=== PATIENT | male | born 1995 | race Caucasian/White ===

== ENCOUNTER 2019-02-18 18:19 | Emergency (ER) | payer OTHER ==
[~2019-02-18] VITALS: Ht 180.3 cm; Wt 94.1 kg
[2019-02-18] MEDS ORDERED: ACET1TAB55 PO (18:25)
--- NOTE | 2019-02-18 20:01 | REP ---
HISTORY: Pain after trauma. COMPARISON: None. FINDINGS: No acute fracture or destructive osseous lesion. The mortise is intact. There is mild soft tissue swelling. There are retro and plantar calcaneal heel spurs. Electronically Signed by Ino Mayorga DO 02/19/2019 12:20 P
[2019-02-18 20:42] VITALS: BP 154/91
== END 2019-02-18 21:20 | disposition home or self-care (01) ==
LOC: M ED 18:19
DX: S93.402A Sprain of unspecified ligament of left ankle, initial encounter (principal); X50.1XXA Overexertion from prolonged static or awkward postures, initial encounter; Y92.139 Unspecified place military base as the place of occurrence of the external cause; Y93.02 Activity, running; Y99.1 Military activity; M77.32 Calcaneal spur, left foot; Z77.098 Contact with and (suspected) exposure to other hazardous, chiefly nonmedicinal, chemicals

== ENCOUNTER 2019-05-20 15:44 | Observation (INO) | payer OTHER ==
[~2019-05-20] VITALS: Ht 185.4 cm; Wt 97.7 kg
[~2019-05-20 15:44] MED LIST: ACET1TAB55 PO
[2019-05-20] MEDS ORDERED: ASPI-1 PO (15:53)
[2019-05-20] MEDS ORDERED: OXYC1TAB23 PO (15:53)
[2019-05-20] MEDS ORDERED: IBUP80TA PO (15:53)
[2019-05-20] MEDS ORDERED: ECOT81TA5 PO (15:53)
[2019-05-20 17:01] LABS: BASO # 0.1 10^3/uL (0.0-0.2); BASO % 0.8 % (0.0-1.0); EOS # 0.5 10^3/uL (0.0-0.5); EOS % 5.2 % (0.0-3.0); HEMATOCRIT 45.9 % (42.0-52.0); HEMOGLOBIN 15.5 g/dl (13.5-17.5); LYMPH # 1.8 10^3/uL (1.5-5.0); LYMPH % 17.3 % (24.0-44.0); MEAN CORPUSCULAR HEMOGLOBIN 28.8 pg (27.0-33.0); MEAN CORPUSCULAR HGB CONC 33.8 g/dl (32.0-36.5); MEAN CORPUSCULAR VOLUME 85.2 fl (80.0-96.0); MONO # 0.8 10^3/uL (0.0-0.8); MONO % 7.4 % (0.0-5.0); NEUTROPHILS # 7.2 10^3/uL (1.5-8.5); NEUTROPHILS % 68.8 % (36.0-66.0); PLATELET COUNT, AUTOMATED 176 10^3/uL (150-450); RED BLOOD COUNT 5.39 10^6/uL (4.30-6.10); WHITE BLOOD COUNT 10.4 10^3/uL (4.0-10.0)
[2019-05-20 17:21] LABS: INR 1.06; PROTHROMBIN TIME 13.5 SECONDS (11.8-14.0)
[2019-05-20 17:22] LABS: PARTIAL THROMBOPLASTIN TIME 29.2 SECONDS (25.0-38.4)
[2019-05-20 17:24] LABS: BLOOD UREA NITROGEN 16 MG/DL (7-18); CALCIUM LEVEL 9.3 MG/DL (8.5-10.1); CARBON DIOXIDE LEVEL 30 MEQ/L (21-32); CHLORIDE LEVEL 107 MEQ/L (98-107); CREATININE FOR GFR 1.03 MG/DL (0.70-1.30); GLOMERULAR FILTRATION RATE > 60.0 (>60); GLUCOSE, FASTING 88 MG/DL (70-100); POTASSIUM SERUM 4.3 MEQ/L (3.5-5.1); SODIUM LEVEL 141 MEQ/L (136-145)
[2019-05-20] MEDS ORDERED: ACETAMINOPHEN TAB 650MG DOSE (2X325MG) PO PRN (18:15)
--- NOTE | 2019-05-20 18:15 | HPEPDOC ---
[facility] Medical History & Physical Date of Admission May 20, 2019 Date of Service: May 20, 2019 History and Physical CHIEF COMPLAINT: LLE pain HISTORY OF PRESENT ILLNESS: Patient is a 23M with no significant PMH who recently underwent L. ankle surgery was sent into the ER after LE dopplers showed new DVTs in his LLE. He underwent L. ankle surgery 1 week prior and has been following up with his PMD and orthopedic. He reported starting to feel pain in his L. calf on Saturday and had the dopplers done after following up with his doctors and found to have DVTs in his LLE including posterior femoral vein, peroneal, anterior tibial, and posterior tibial vein. He denies any history of clotting nor bleeding in the past although noted Protein S deficiency in his other family members. He denies any SOB, chest pain or any other symptoms apart from LLE calf pain. PAST MEDICAL HISTORY: Refer to [facility] PAST SURGICAL HISTORY: L. ankle surgery umbilical hernia repair [place] teeth removal SOCIAL HISTORY: Social alcohol use. Denies tobacco or illicit drug use. FAMILY HISTORY: Protein S deficiency in multiple family members ALLERGIES: Please see below. REVIEW OF SYSTEMS: 10 point review of system negative except as stated in [facility] HOME MEDICATIONS: Please see below. PHYSICAL EXAMINATION: General: No acute distress, Alert Eyes: Normal sclera, EOMI, PERCY HENT: Atraumatic, neck supple, moist mucous membranes Cardiovascular: Normal rate, normal rhythm. No murmurs appreciated. Pulmonary: Clear to auscultation b/l, no wheezing GI: Soft, nontender, nondistended Skin: Warm and dry MSK: LLE in hard cast. Superior calf tenderness in LLE. Neuro: CN grossly intact. No focal deficits. Psych: oriented x 3 LABORATORY DATA: See below. IMAGING: LLE Doppler- No clots in common femoral vein. Thrombus within posterior femoral vein, popliteal vein, peroneal, anterior tibial vein, and posterior tibial vein. MICROBIOLOGY: Please see below. ASSESSMENT AND PLAN: 1. Acute DVT - Provoked DVT 2/2 recent surgical procedure. - No risk factors for bleeding and no comorbidities in a young patient, patient is considered low risk. - Given extensive clots including within femoral vein, will admit patient for observation overnight while initiating anticoagulation. - He denies any SOB or chest discomfort. Low wells score for PE. - Will start on Oral anticoagulation. - Will not benefit from hypercoagulable workup given 1st episode of provoke DVT. Would not be accurate during an acute episode anyway. Code status: Full code Dispo: Plan to d/c in AM if patient remain stable Vital Signs Vital Signs Date Time Temp Pulse Resp B/P (MAP) Pulse Ox O2 Delivery O2 Flow Rate FiO2 05/20/19 16:07 05/20/19 15:44 98.0 117 16 100 Room Air Laboratory Data Labs 24H Laboratory Tests 2 05/20/19 16:34: Immature Granulocyte % (Auto) 0.5, Neutrophils (%) (Auto) 68.8H, Lymphocytes (%) (Auto) 17.3L, Monocytes (%) (Auto) 7.4H, Eosinophils (%) (Auto) 5.2H, Basophils (%) (Auto) 0.8, Neutrophils # (Auto) 7.2, Lymphocytes # (Auto) 1.8, Monocytes # (Auto) 0.8, Eosinophils # (Auto) 0.5, Basophils # (Auto) 0.1, Nucleated Red Blood Cells % (auto) 0.0, Prothrombin Time 13.5, Prothromb Time International Ratio 1.06, Activated Partial Thromboplast Time 29.2, Anion Gap 4L, Glomerular Filtration Rate > 60.0, Calcium Level 9.3 05/20/19 16:39: CBC/BMP Laboratory Tests 05/20/19 16:34 Home Medications Miscellaneous Medications Aspirin (Aspirin) 325 Mg Tablet Ibuprofen (Ibuprofen) 800 Mg Tablet Oxycodone HCl/Acetaminophen (Oxycodone-Acetaminophen 5-325) 1 Each Tablet Allergies Coded Allergies: No Known Allergies (Unverified , 02/18/19) A-FIB/CHADSVASC A-FIB History Current/History of A-Fib/PAF?: No TONY OBRIEN MD May 20, 2019 18:15
[2019-05-20] MEDS: APIXABAN 5 MG TAB (ELIQUIS) PO SCH (19:37)
[2019-05-20] MEDS: PERCOCET 5MG/325MG TAB PO PRN (19:41)
[2019-05-20 20:32] VITALS: BP 136/79
[2019-05-21] MEDS ORDERED: IBUPROFEN 600 MG TAB PO ONE (02:15)
[2019-05-21 04:00] VITALS: BP 135/69
[2019-05-21] MEDS: PERCOCET 5MG/325MG TAB PO PRN ×3 (04:20→15:33)
[2019-05-21 08:00] VITALS: BP 105/55
[2019-05-21] MEDS ORDERED: PERCOCET 5MG/325MG TAB PO PRN (09:00)
[2019-05-21] MEDS: APIXABAN 5 MG TAB (ELIQUIS) PO SCH (10:04)
[2019-05-21] MEDS ORDERED: MORPHINE 4 MG/ML 1ML VIAL/SYRINGE (J2270) IV PRN (10:30)
--- NOTE | 2019-05-21 11:42 | CR.PDOC ---
General Date of Consultation: May 21, [address] Daniel PCP [facility]. HPI: 23 year old M with no significant past medical history who underwent L. ankle surgery approximately 1 week ago was sent into the ER by his surgeon, Dr. Coronel, after LE doppler US completed at [facility] indicated new DVTs in his LLE. The patient states he noted the onset of left calf pain on Saturday. The patient states he notices mild swelling in the left lower extremity today however previously he had not noted any swelling. He denies any erythema of the left lower extremity. Denies any warmth or tenderness of left lower extremity. Currently he is ambulating with crutches. Vascular surgery is consulted regarding DVT. The patient is currently started on Eliquis. The patient denies any chest pain or shortness of breath. No acute medical complaints today. Denies any fevers, chills, weakness, fatigue, Headache, cough, palpitations, abdominal pain, N/V/D or changes in bowel or bladder habits. PMHx: Unremarkable PSHX: L. ankle surgery umbilical hernia repair [place] teeth removal SOCHX: Tobacco use: Denies ETOH: Denies FAMHX: History of protein S deficiency in his father, paternal grandmother, paternal uncle, paternal grandfather. ROS: As noted in HPI, otherwise 11pt ROS of systems reviewed and unremarkable. PE: GEN: 23 yo M, appears stated age. Well-nourished, well developed. No acute distress. Alert and oriented x 3. Pleasant, interactive. Heart rate 75. Blood pressure 105-135 systolic. HEENT: Normocephalic, atraumatic. Moist mucous membranes. CHEST: Regular rate and rhythm, +S1, +S2 LUNGS: Clear to auscultation bilaterally. No wheezes, rales, or rhonchi. Breathing appears symmetric and easy. Patient is speaking in full sentences. No accessory muscle use. ABD: Round, soft, non-tender, non-distended. +Bowel sounds throughout. EXT: The left lower extremity has a orthopedic/postoperative dressing from the left ankle to the proximal pretibial area. There is no significant edema noted. No erythema. No warmth with palpation, no tenderness with palpation. SKIN: [place], dry, warm. Capillary refill <2sec. No rashes. NEURO: Alert and oriented x 3. Cranial nerves III-XII are intact. No focal deficits appreciated. Left lower extremity ultrasound. There is no available copy on the patient's chart. A photograph of the report is noted on the patient's cell phone. This was completed at [facility] as per Dr. Coronel 05/20/19. This indicates occlusive thrombus in the posterior branch of the femoral vein, popliteal vein, posterior tibial vein. A&P: 1. LLE DVT 1 week status post left ankle surgery. The patient is reviewed with Dr. Daniel, vascular surgery. A photograph of the report is noted on the patient's cell phone. This was completed at [facility] as per Dr. Coronel 05/20/19. This indicates occlusive thrombus in the posterior branch of the femoral vein, popliteal vein, posterior tibial vein. Would recommend conservative management. Recommend elevation of the left lower extremity above the level of the heart as much as possible. No indication for IVC filter at this time. Continue with Eliquis anticoagulation. Reinforce for patient not to miss any doses of medication. Hypercoagulable workup pending at this time, follow up with PCP as outpatient regarding results. If the patient develops shortness of breath or chest pain he should return to the emergency department for additional evaluation. Patient should follow-up in 3 months with vascular surgery or PCP with follow-up ultrasound of left lower extremity. Vital Signs/I&O Vital Signs Date Time Temp Pulse Resp B/P (MAP) Pulse Ox O2 Delivery O2 Flow Rate FiO2 05/21/19 10:18 16 05/21/19 08:00 97.6 71 105/55 (72) 96 Room Air I&O- Last 24 Hours up to 6 AM 05/21/19 06:00 Intake Total 240 ml Balance 240 ml Laboratory Data Labs 24H Laboratory Tests 2 05/20/19 16:34: Immature Granulocyte % (Auto) 0.5, Neutrophils (%) (Auto) 68.8H, Lymphocytes (%) (Auto) 17.3L, Monocytes (%) (Auto) 7.4H, Eosinophils (%) (Auto) 5.2H, Basophils (%) (Auto) 0.8, Neutrophils # (Auto) 7.2, Lymphocytes # (Auto) 1.8, Monocytes # (Auto) 0.8, Eosinophils # (Auto) 0.5, Basophils # (Auto) 0.1, Nucleated Red Blood Cells % (auto) 0.0, Prothrombin Time 13.5, Prothromb Time International Ratio 1.06, Activated Partial Thromboplast Time 29.2, Anion Gap 4L, Glomerular Filtration Rate > 60.0, Calcium Level 9.3 05/20/19 16:39: CBC/BMP Laboratory Tests 05/20/19 16:34 Allergies Coded Allergies: No Known Allergies (Unverified , 02/18/19) Home Medications Scheduled Apixaban (Eliquis) 5 Mg Tablet, 10 MG PO BID for 6 Days, #12 Complete this course followed by 5 mg BID regimen Apixaban (Eliquis) 5 Mg Tablet, 5 MG PO BID for 30 Days, #60 Start this dose after completing 6 days of 10 mg BID Scheduled PRN Acetaminophen (Acetaminophen) 325 Mg Tablet, 650 MG PO Q6H PRN for PAIN OR FEVER for 5 Days, #20 Oxycodone HCl/Acetaminophen (Oxycodone-Acetaminophen 5-325) 1 Each Tablet, 1 TAB PO Q6H PRN for PAIN, (Reported) Christine Guerrero May 21, 2019 11:16
[2019-05-21 12:00] VITALS: BP 109/55
[2019-05-21] MEDS ORDERED: ELIQ5TAB PO ×2 (12:17→13:48)
[2019-05-21] MEDS ORDERED: ACET1TAB55 PO (12:17)
--- NOTE | 2019-05-21 15:00 | DS.PDOC ---
Discharge Summary General Date of Admission May 20, 2019 at 15:45 Date of Discharge 05/21/19 Discharge Summary PROCEDURES PERFORMED DURING STAY: [None]. ADMITTING DIAGNOSES: 1. Acute DVT DISCHARGE DIAGNOSES: 1. Acute DVT COMPLICATIONS/CHIEF COMPLAINT: DVT. HISTORY OF PRESENT ILLNESS: "Patient is a 23M with no significant PMH who recently underwent L. ankle surgery was sent into the ER after LE dopplers showed new DVTs in his LLE. He underwent L. ankle surgery 1 week prior and has been following up with his PMD and orthopedic. He reported starting to feel pain in his L. calf on Saturday and had the dopplers done after following up with his doctors and found to have DVTs in his LLE including posterior femoral vein, peroneal, anterior tibial, and posterior tibial vein. He denies any history of clotting nor bleeding in the past although noted Protein S deficiency in his other family members. He denies any SOB, chest pain or any other symptoms apart from LLE calf pain." HOSPITAL COURSE: Patient admitted for observation given extensive nature of DVT and persistent pain. He was started on Eliquis and remained stable overnight without any complaints of chest pain, SOB or any other else apart from LLE pain. He was also evaluated by vascular surgery and recommend repeating dopplers and f/u in 3 months either with PCP or with vascular surgery. Patient is advised to return to ER should he develop SOB or chest discomfort. All plans relayed to patient and patient is comfortable returning home. DISCHARGE MEDICATIONS: Please see below. ALLERGIES: Please see below. PHYSICAL EXAMINATION ON DISCHARGE: VITAL SIGNS: Please see below. General: No acute distress, Alert Eyes: Normal sclera, EOMI, PERCY HENT: Atraumatic, neck supple, moist mucous membranes Cardiovascular: Normal rate, normal rhythm. No murmurs appreciated. Pulmonary: Clear to auscultation b/l, no wheezing GI: Soft, nontender, nondistended Skin: Warm and dry MSK: LLE in hard cast. Superior calf tenderness in LLE. Neuro: CN grossly intact. No focal deficits. Psych: oriented x 3 LABORATORY DATA: Please see below. ACTIVITY: [As tolerated]. DIET: Regular DISCHARGE PLAN: f/u PMD within 1 week Perform repeat dopplers in 3 months- decide with PMD whether to f/u results with PMD or Vascular surgery If wants to follow vascular, schedule an appointment and go in with doppler results DISPOSITION: Home. DISCHARGE INSTRUCTIONS: f/u PMD within 1 week Perform repeat dopplers in 3 months- decide with PMD whether to f/u results with PMD or Vascular surgery If wants to follow vascular, schedule an appointment and go in with doppler results ITEMS TO FOLLOWUP ON ON OUTPATIENT: None DISCHARGE CONDITION: [Stable]. TIME SPENT ON DISCHARGE: 35 minutes. Vital Signs/I&Os Vital Signs Date Time Temp Pulse Resp B/P (MAP) Pulse Ox O2 Delivery O2 Flow Rate FiO2 05/21/19 12:00 96.5 67 16 109/55 (73) 96 Room Air I&O- Last 24 Hours up to 6 AM 05/21/19 06:00 Intake Total 240 ml Balance 240 ml Laboratory Data Labs 24H Laboratory Tests 2 05/20/19 16:34: Immature Granulocyte % (Auto) 0.5, Neutrophils (%) (Auto) 68.8H, Lymphocytes (%) (Auto) 17.3L, Monocytes (%) (Auto) 7.4H, Eosinophils (%) (Auto) 5.2H, Basophils (%) (Auto) 0.8, Neutrophils # (Auto) 7.2, Lymphocytes # (Auto) 1.8, Monocytes # (Auto) 0.8, Eosinophils # (Auto) 0.5, Basophils # (Auto) 0.1, Nucleated Red Blood Cells % (auto) 0.0, Prothrombin Time 13.5, Prothromb Time International Ratio 1.06, Activated Partial Thromboplast Time 29.2, Anion Gap 4L, Glomerular Filtration Rate > 60.0, Calcium Level 9.3 05/20/19 16:39: CBC/BMP Laboratory Tests 05/20/19 16:34 Discharge Medications Scheduled Apixaban (Eliquis) 5 Mg Tablet, 10 MG PO BID Complete this course followed by 5 mg BID regimen Apixaban (Eliquis) 5 Mg Tablet, 5 MG PO BID Start this dose after completing 6 days of 10 mg BID Apixaban (Eliquis) 5 Mg Tablet, 10 MG PO BID Complete this course follow by 5 mg BID Scheduled PRN Acetaminophen (Acetaminophen) 325 Mg Tablet, 650 MG PO Q6H PRN for PAIN OR FEVER Oxycodone HCl/Acetaminophen (Oxycodone-Acetaminophen 5-325) 1 Each Tablet, 1 TAB PO Q6H PRN for PAIN, (Reported) Allergies Coded Allergies: No Known Allergies (Unverified , 02/18/19) TONY OBRIEN MD May 21, 2019 15:00
[2019-05-25 00:06] LABS: PROTEIN C FUNCTIONAL ACTIVITY 184 % (73-180); PROTEIN S FUNCTIONAL ACTIVITY 32 % (63-140)
== END 2019-05-21 16:20 | disposition home or self-care (01) ==
LOC: M ED 15:44 → M ED INP 15:45 → M PED 20:20
PROVIDERS: ADMIT Student in an Organized Health Care Education/Training Program; ATTEND Student in an Organized Health Care Education/Training Program
DX: I82.402 Acute embolism and thrombosis of unspecified deep veins of left lower extremity (principal); Z79.01 Long term (current) use of anticoagulants

== ENCOUNTER 2019-07-03 10:36 | Emergency (ER) | payer OTHER ==
[~2019-07-03] VITALS: Ht 180.3 cm; Wt 104.8 kg
[~2019-07-03 10:36] MED LIST changes: +ASPI-1 PO; +ECOT81TA5 PO; +ELIQ5TAB PO; +IBUP80TA PO; +OXYC1TAB23 PO
--- NOTE | 2019-07-03 13:18 | REP ---
Clinical: Left popliteal pain . Technique: Florian scale and color Doppler evaluation using linear high frequency transducer. Findings: There is occlusive thrombus involving the distal superficial femoral vein extending through the popliteal vein and tibioperoneal trunk. Impression: Acute deep venous thrombosis. Electronically Signed by Nathan Weaver MD 07/03/2019 01:09 P
[2019-07-03] MEDS ORDERED: APIXABAN 5 MG TAB (ELIQUIS) PO ONE (14:15)
[2019-07-03] MEDS ORDERED: ELIQ5TAB PO (14:35)
[2019-07-03 14:49] VITALS: BP 123/58
[2019-07-07 00:06] LABS: PROTEIN C FUNCTIONAL ACTIVITY 154 % (73-180); PROTEIN S FUNCTIONAL ACTIVITY 34 % (63-140)
== END 2019-07-03 14:51 | disposition home or self-care (01) ==
LOC: M ED 10:36
DX: I82.402 Acute embolism and thrombosis of unspecified deep veins of left lower extremity (principal); Z79.01 Long term (current) use of anticoagulants